=== PATIENT | male | born 1960 | race Caucasian/White ===

== ENCOUNTER 2020-10-06 06:47 | Day surgery (SDC) | payer BC, OTHER ==
[2020-10-04 15:24] VITALS: BMI 46.3
[~2020-10-06 06:47] MED LIST: LACTATED RINGERS 1,000 ML IV SCH; LIDOCAINE 1% (10MG/ML) FOR IV START INTRADERMA PRN
[2020-10-06 07:17] VITALS: TEMP 97.8
[2020-10-06 07:49] LABS: Glucose,Whole Blood 90 mg/dL (75-99)
[2020-10-06] MEDS ORDERED: PROPOFOL 10 MG/ML 20 ML VIAL IV ONE (07:53)
[2020-10-06] MEDS ORDERED: MIDAZOLAM 2 MG/2 ML VIAL ONE (07:53)
--- NOTE | 2020-10-06 08:17 | P.PCN ---
Date of Procedure: 10/06/20 Procedure(s) Performed: BRIEF HISTORY: Patient is a 60-year-old pleasant white male scheduled for an elective colonoscopy as a part of prior history of colon polyps. Last colonoscopy was 5 years ago. PROCEDURE PERFORMED: Colonoscopy with snare polypectomy. PREOPERATIVE DIAGNOSIS: History of colon polyps. IV sedation per Anesthesia. PROCEDURE: After informed consent was obtained, the patient, was brought into the endoscopy unit. IV sedation was administered by Anesthesia under continuous monitoring. Digital rectal examination was normal. Initially the Olympus CF-160 flexible video colonoscope was then inserted in the rectum, gradually advanced into the cecum without any difficulty. Careful examination was performed as the scope was gradually being withdrawn. Ileocecal valve and the appendiceal orifice were visualized and appeared normal. Prep was excellent. Mucosa of the cecum, ascending colon, appeared normal. In the hepatic flexure there was a 5 mm sessile polyp removed by snare polypectomy. In the descending colon there were 3 polyps measuring 3 mm, 7 mm and 1 cm in size all of which were removed by snare polypectomy. In the sigmoid colon there was a 5 mm sessile polyp removed by snare polypectomy. The rest of the sigmoid colon, and rectum appeared normal. Retroflexion was performed in the rectum and no lesions were seen. The patient tolerated the procedure well. IMPRESSION: 5 mm hepatic flexure polyp Status post polypectomy 3 mm and 7 mm and 1 cm descending colon polyp status post 5 mm and 6 mm sigmoid: Polyp status post polypectomy RECOMMENDATIONS: Findings of this examination were discussed with the patient and his family. He was advised to follow with the biopsy results and have a repeat colonoscopy in 3 years
[2020-10-06 08:29] VITALS: RESP 16
[2020-10-06 08:43] VITALS: BP 120/75; PULSE 76
== END 2020-10-06 08:50 | disposition home or self-care (01) ==
LOC: ORWHC2ENDO 06:47
PROVIDERS: ATTEND Internal Medicine Gastroenterology
DX: Z12.11 Encounter for screening for malignant neoplasm of colon (principal); D12.3 Benign neoplasm of transverse colon; D12.4 Benign neoplasm of descending colon; K63.5 Polyp of colon; Z86.010 Personal history of colon polyps; E11.9 Type 2 diabetes mellitus without complications; I10 Essential (primary) hypertension; Z79.899 Other long term (current) drug therapy; Z79.4 Long term (current) use of insulin
CPT/HCPCS: 88305; 45385; J2250; J2704

== ENCOUNTER → 2024-02-25 | Outpatient (CLI) | payer OTHER ==
[2024-02-25 11:01] VITALS: BP 150/87; PULSE 72; RESP 18; TEMP 97.8
--- NOTE | 2024-02-25 11:23 | P.SLEEP ---
History of Present Illness DATE: 02/25/2024 CONSULTATION/NEW PATIENT EVALUATION HISTORY OF PRESENT ILLNESS/SLEEP-WAKE EVALUATION: 64-year-old gentleman had b een evaluated in the sleep center for possible obstructive sleep apnea hypopnea syndrome. Patient has history of obstructive sleep apnea diagnosed about 8 years ago he was started atrial treatment with CPAP, but was not able to use CPAP equipment because was not comfortable with the mask and pressure and did not use any equipment for last 5 years. SLEEP SCHEDULE: Usually sleep schedule from 11 PM to 6 AM. FALLING ASLEEP: Usually no significant problems with falling asleep. DURING SLEEP: Patient has loud snoring and wakes up from sleep every hour with up to 6 episodes of nocturia. No history of hypnogogical hallucinations, sleep paralysis, or cataplexy. DURING THE DAY/WAKE STATE: In the morning patient wake up tired, falling asleep during the day. [place] sleepiness scale is an extremely high range of 21. Patient takes up to 4 naps during the day. PAST MEDICAL HISTORY: CIDP, diabetes mellitus, acid reflux, depression. PAST SURGICAL HISTORY: Port insertion. MEDICATIONS: Please see below. Additionally Privigen IV every 2 weeks, lidocaine for the port usage. SOCIAL HISTORY: Please see below. FAMILY HISTORY: Hypertension, heart problems, epilepsy, stroke, sleep apnea. REVIEW OF SYSTEMS: Loud snoring, multiple awakenings from sleep, nocturia, significant excessive daytime sleepiness. No fevers. No double vision. No recent chest pain. No shortness of breath. No abdominal pain. No bleeding episodes. No blood in urine. No seizure episodes. PHYSICAL EXAMINATION: GENERAL: A pleasant patient without any distress. VITAL SIGNS: Please see below, weight 361.4 pounds, BMI 51.4. HEENT: PERRLA, EOMI. Evaluation of oropharynx showed tongue protrudes midline, low position of soft palate Mallampati 4. NECK: Supple. No JVD. Thyroid is not palpable. 21 inches in circumference. LUNGS: Clear to percussion and to auscultation. Good air exchange. No wheezing or rhonchi. HEART: S1, S2 regular. No murmurs, gallops or rubs. ABDOMEN: Soft and nontender. Bowel sounds are present. No organomegaly appreciated. Obese EXTREMITIES: No clubbing or cyanosis. SOFTWARE ENGINEER SALES: Awake, alert, and oriented x3. ASSESSMENT: 1. Loud snoring, multiple awakenings from sleep, extremely low position of soft palate Mallampati 4, wide neck 21 inches in circumference, sleepiness, history of severe obstructive sleep apnea in the past. Obstructive sleep apnea hypopnea syndrome 2 sleepiness with [place] Sleepiness Scale 21 dictate necessity to include hypersomnia and differential diagnosis.. 2. Morbid obesity BMI 51.7. 3. History of chronic inflammatory demyelinating polyneuropathy (CIDP). 4. Diabetes mellitus. 5 acid reflux. 6 . History of depression. 7. Port in the chest. PLAN: 1. Polysomnography for evaluation of patient's breathing during sleep. 2. CPAP/BiPAP titration if sleep study confirms obstructive sleep apnea- hypopnea syndrome. 3. Preferable position during sleep on the side. 4. No driving if patient feels any sleepiness. Patient is aware of civil and c riminal liability for unsafe driving. 5. Sleep hygiene with regular sleep time for at least 7.5-8 hours. 6. Watching and losing weight. Thank you very much for referring this patient for consultation. Sincerely, Tirso Cleaning MD, PhD, FAASM. Diplomat of [place] [employer], Sleep Medicine Board by [employer] Electrical Line Splicer of [facility] [place] Past Medical History Past Medical History: Diabetes Mellitus, GERD/Reflux, Hypertension, Neurologic Disorder, Prostate Disorder, Sleep Apnea/CPAP/BIPAP Additional Past Medical History / Comment(s): CIDP-CHROIC INFLAMMMATORY DEMYELINATING POLYNEUROPATHY, DEPRESSION History of Any Multi-Drug Resistant Organisms: None Reported Past Surgical History: Adenoidectomy, Orthopedic Surgery, Tonsillectomy Additional Past Surgical History / Comment(s): ORIF RT ANKLE. COLONOSCOPY X 2. FRENULECTOMY ADULT Past Anesthesia/Blood Transfusion Reactions: No Reported Reaction Past Psychological History: Depression Smoking Status: Former smoker Past Alcohol Use History: Rare Additional Past Alcohol Use History / Comment(s): QUIT SMOKING 20-30 YEARS AGO Past Drug Use History: None Reported - Past Family History Father Family Medical History: Cancer Additional Family Medical History / Comment(s): FATHER VENTRICULAR FIBRILLATION Brother(s) Family Medical History: Pulmonary Embolus Medications and Allergies Home Medications Medication Instructions Recorded Confirmed Type Eufemiawell Chews 5 gram PO DAILY 10/04/20 History Glimepiride [Amaryl] 4 mg PO BID 10/04/20 10/04/20 History Insulin Glargine [Lantus] 96 unit SQ HS 10/04/20 10/04/20 History Iv Ig 90 gram IV Q21D 10/04/20 History Metoprolol Succinate (ER) [Toprol 25 mg PO DAILY 10/04/20 10/04/20 History Xl] Multivitamins, Thera [Multivitamin 1 tab PO DAILY 10/04/20 10/04/20 History (formulary)] Tamsulosin [Flomax] 0.4 mg PO HS 10/04/20 10/04/20 History metFORMIN HCL [Glucophage] 1,000 mg PO BID 10/04/20 10/04/20 History mycophenolate mofetiL [Cellcept] 1,000 mg PO BID 10/04/20 10/04/20 History Allergies Allergy/AdvReac Type Severity Reaction Status Date / Time No Known Allergies Allergy Verified 10/06/20 07:14 Physical Exam Vitals: Vital Signs Temp Pulse Resp BP Pulse Ox 02/25/24 10:40 97.8 F 72 18 150/87 94 L Intake and Output 02/24/24 02/25/24 02/25/24 22:59 06:59 14:59 Other: Weight 163.86 kg Sleep Note - Sleep Data ESS Total: 21 - Sleep Note Sleep Note: Temperature: 97.8 F Pulse Rate: 72 Respiratory Rate: 18 Blood Pressure: 150/87 SpO2: 94 Height: 5 ft 10 in Weight: 163.86 kg BMI: Neck Circumference:
== END ==
LOC: 3 N SLEEP 10:07
PROVIDERS: ATTEND Internal Medicine
DX: G47.33 Obstructive sleep apnea (adult) (pediatric) (principal); G47.10 Hypersomnia, unspecified; E66.01 Morbid (severe) obesity due to excess calories; K21.9 Gastro-esophageal reflux disease without esophagitis; G61.81 Chronic inflammatory demyelinating polyneuritis; E11.42 Type 2 diabetes mellitus with diabetic polyneuropathy; Z86.69 Personal history of other diseases of the nervous system and sense organs; Z79.4 Long term (current) use of insulin; Z79.84 Long term (current) use of oral hypoglycemic drugs; Z86.59 Personal history of other mental and behavioral disorders; Z68.43 Body mass index [BMI] 50.0-59.9, adult; Z95.9 Presence of cardiac and vascular implant and graft, unspecified; Z87.891 Personal history of nicotine dependence
CPT/HCPCS: 99202

== ENCOUNTER 2024-04-04 20:38 | Outpatient (CLI) | payer OTHER ==
--- NOTE | 2024-04-07 15:13 | P.PCN ---
Description of Procedure: POLYSOMNOGRAPHY REPORT PROCEDURE(S)/DATE(S): Polysomnography 04/04/2024 CLINICAL: Patient has been seen in the sleep center for evaluation of obstructive sleep apnea-hypopnea syndrome. Please see my consultation. Sleep study has been done for evaluation of patient breathing during the sleep. PROCEDURE: The standard montage for clinical polysomnography included the electroencephalogram, the electrooculogram, the mentalis surface electromyography and Lead II cardiography. The respiratory battery consisted of measurements of nasal/buccal air flow, pressure transducer measurements from nose, thoracic and/or abdominal effort and intercostal surface electromyography. Video monitoring has been done to check for any parasomnia events. Nocturnal oxyhemoglobin saturations were obtained by finger oximetry. Step-see titration with positive airway pressure was utilized to control the respiratory events, if necessary. RESULTS: During the diagnostic sleep study sleep efficiency was extremely short 59.3%. Latency to sleep onset was normal 9.5 min. Sleep architecture showed st age NI was extremely high 95.2%, Delta sleep was absent 0%, REM sleep was absent 0%. Respiratory channel showed 0 obstructive apneas, 0 mixed apneas, 0 central apneas, 558 hypopneas with lowest oxygen level 64%. Total apnea hypopnea index was 133.4. Heart rate was in the range between 66 and 81, average 73 by computer calculation. EMG showed 0 periodic limb movements per hour with 0 micro-arousals per hour. IMPRESSIONS: 1. Extremely severe obstructive sleep apnea hypopnea syndrome with apnea hypopnea index 133.4 and oxygen desaturation to 64%. 2. No significant periodic limb movements have been documented. Please see other impressions from consultation PLAN: 1. The patient will have PAP titration for correction of respiratory abnormalities during the sleep. 2. Losing weight program. 3. Sleep hygiene with regular time in bed for at least 7-1/2 hours. 4. No driving if feeling sleepiness. Thank you very much for allowing me to participate in the management of your patient. Sincerely, Tirso Cleaning MD, PhD, FAASM. Diplomat of [place] [employer] Medicine, Sleep Medicine Board by [place] Board of Internal Medicine Treatment Specialist of [facility] [place]
== END 2024-04-05 05:50 | disposition home or self-care (01) ==
LOC: 3 N SLEEP 20:38
PROVIDERS: ATTEND Internal Medicine
DX: G47.33 Obstructive sleep apnea (adult) (pediatric) (principal); G47.36 Sleep related hypoventilation in conditions classified elsewhere
CPT/HCPCS: 95810

== ENCOUNTER 2024-04-06 18:55 | Outpatient (CLI) | payer OTHER ==
--- NOTE | 2024-04-08 12:40 | P.PCN ---
Description of Procedure: CLINICAL: Titration with positive air pressure has been done for correction of respiratory abnormalities during sleep. DESCRIPTION OF PROCEDURE: The standard montage for clinical polysomnography included the electroencephalogram, the electrocardiogram, the mentalis surface electromyography and Lead II cardiography. The respiratory battery consisted of measurements of nasal /buccal air flow, pressure transducer measurements from the nose, thoracic and /or abdominal effort and intercostal surface electromyography. Video monitoring has been done to check for any parasomnia events. Nocturnal oxyhemoglobin saturations were obtained by finger oximetry. Step-see titration with positive airway pressure was utilized to control respiratory events. Raw data of sleep recording has been reviewed and is adequate. RESULTS: Sleep efficiency was increased to 93.7%. Latency to sleep onset was short 6.5 minutes.]. Sleep architecture showed stage N1 was normal 8.4%, Delta sleep was decreased to 3.8%, REM sleep was low 6.9%. Heart rate was minimum 65 BPM, maximum 74 BPM, average 69 BPM. EMG showed 17.2 periodic limb movements per hour with 0.5 micriarousals per hour. PAP titration have been done with CPAP up to the pressure 17 cm H2O. Patient continued to have respiratory problems with CPAP, switched to BPAP. BPAP titrated up to 25/21 cm H2O. The best results were at the pressure BiPAP 25/21 with 3 L/min oxygen supplement cm H2O. Apnea hypopnea index reduced to 21.2. IMPRESSION: 1. Extremely severe obstructive sleep apnea hypopnea syndrome with apnea hypopnea index 133.4 with oxygen desaturation to 64% improved on maximal BiPAP pressure 25/21 centimeters of water with 3 L/min oxygen supplement. 2. Mild periodic limb movements have been documented during titration without significant amount of related microarousal's. Please see other impressions from consultation. PLAN: 1. The patient will have treatment with positive air pressure equipment with the level of pressure AutoBPAP with maximal inspiratory pressure 25 and minimal expiratory pressure 10 with pressure support 4 cm H2O with 3 L/min oxygen supplement and should use it every night for the whole night. 2. Watching and losing weight. 3. Sleep hygiene with regular time in bed for at least 8 hours. 4. No driving if feeling any sleepiness. 5. I will see the patient for follow up visit to explain the results of the test, recommendations, check compliance with treatment and make any necessary adjustment related to mask fitting, pressure and humidification. 6. Please check iron profile including ferritin level. Low level of iron may increase risk for periodic limb movements Thank you very much for allowing me to participate in the management of your patient. Sincerely, Tirso Cleaning MD, PhD, FAASM Diplomat of [place] [employer]ties Sleep Medicine Board of [place] [employer] of Internal Medicine Hotel Front Office Manager of [facility] [place]
== END 2024-04-07 05:30 | disposition home or self-care (01) ==
LOC: 3 N SLEEP 18:55
PROVIDERS: ATTEND Internal Medicine
DX: G47.33 Obstructive sleep apnea (adult) (pediatric) (principal); G47.61 Periodic limb movement disorder; G47.36 Sleep related hypoventilation in conditions classified elsewhere
CPT/HCPCS: 95811

== ENCOUNTER → 2024-07-13 | Day surgery (SDC) | payer OTHER ==
[2024-07-08 10:32] VITALS: BMI 50.5
[~2024-07-13] MED LIST changes: +LIDOCAINE 1% INJ 10MG/ML (20 ML MDV) ONE; +PROPOFOL 10 MG/ML 20 ML VIAL IV ONE
[2024-07-13] MEDS: IV FLUID CONTINUATION 1,000 ML IV ONE (08:38)
[2024-07-13 08:58] LABS: Glucose,Whole Blood 119 mg/dL (70-110)
--- NOTE | 2024-07-13 09:58 | P.PCN ---
Date of Procedure: 07/13/24 Procedure(s) Performed: BRIEF HISTORY: Patient is a 64-year-old pleasant white male scheduled for an elective colonoscopy as a part of evaluation for history colon polyps.. Last colonoscopy was 4 years ago and was noted to have a tubular adenoma. PROCEDURE PERFORMED: Colonoscopy with snare polypectomy. PREOPERATIVE DIAGNOSIS: History of colon polyps. IV sedation per Anesthesia. PROCEDURE: After informed consent was obtained, the patient, was brought into the endoscopy unit. IV sedation was administered by Anesthesia under continuous monitoring. Digital rectal examination was normal. Initially the Olympus CF-160 flexible video colonoscope was then inserted in the rectum, gradually advanced i nto the cecum without any difficulty. Careful examination was performed as the scope was gradually being withdrawn. Ileocecal valve and the appendiceal orifice were visualized and appeared normal. Prep was excellent. Mucosa of the cecum, appeared normal. Descending colon there was a 5 mm polyp that was removed by cold snare polypectomy. In the descending colon there was an 8 mm polyp removed by cold snare polypectomy. In the sigmoid colon there was a 3 mm and 5 mm polyp removed by cold snare polypectomy. Rest of the ascending colon, transverse colon, descending colon, sigmoid colon, and rectum appeared normal. Retroflexion was performed in the rectum and no lesions were seen. The patient tolerated the procedure well. IMPRESSION: 5 mm ascending colon polyp status post cold snare polypectomy 8 mm descending colon polyp status post cold snare polypectomy 3 mm and 5 mm sigmoid colon polyps status post cold snare polypectomy RECOMMENDATIONS: Findings of this examination were discussed with the patient as well as his family. He was advised to follow-up with the biopsy results. If the biopsy reveals adenoma he can have repeat colonoscopy in 5 years.
[2024-07-13 11:04] VITALS: BP 123/71; PULSE 78; RESP 16
== END ==
LOC: ORWHC2ENDO 07:45
PROVIDERS: ATTEND Internal Medicine Gastroenterology
DX: Z12.11 Encounter for screening for malignant neoplasm of colon (principal); D12.2 Benign neoplasm of ascending colon; D12.5 Benign neoplasm of sigmoid colon; Z86.010 Personal history of colon polyps
CPT/HCPCS: 45385; 88305

== ENCOUNTER → 2024-07-22 | Outpatient (CLI) | payer OTHER ==
[2024-07-22 10:45] VITALS: BP 160/81; PULSE 76; RESP 16; TEMP 97.6
--- NOTE | 2024-07-22 11:37 | P.PROGSL ---
Subjective DATE: 07/22/2024 FOLLOW UP VISIT. Patient with obstructive sleep apnea hypopnea syndrome return to sleep center for follow-up visit. Recently patient had sleep study which documented obstructive sleep apnea hypopnea syndrome. Patient was initiated on PAP therapy and today is first visit after treatment was started. I explained results of sleep studies to the patient in details. He has extremely severe sleep apnea. Patient was able to use BPAP equipment every night for the whole night. At the beginning he had some problems with the mask, mask was changed and now he is doing better. The patient does not have significant problems with the mask, PAP pressure and humidification. Patient feels better during the day. [place] sleepiness scale is improved but still in very high range of 18. I checked information from BPAP unit. BPAP unit average pressure 13.8 / 9.8 cm H2O. Usage is 90% and about 60% for more then 4 hours, average 4.1 hours per night. Leak is 22 l/m, which is in acceptable range. Apnea Hypopnea Index is 2.3, which is normal. MEDICATIONS: Please see below During physical exam: GENERAL: A pleasant patient without any distress. VITAL SIGNS: Please see below. Weight is 369 pounds. HEENT: PERRLA, EOMI.low position of soft palate, Mallapati 4 . NECK: Supple. No JVD. LUNGS: Clear to percussion and to auscultation. Good air exchange. No wheezing or rhonchi. HEART: S1, S2 regular. ABDOMEN: Soft and nontender. Obese EXTREMITIES: No clubbing or cyanosis. STOVE BOTTOM WORKER: Awake, alert, and oriented x3. No focal deficit. Impressions: 1. Obstructive sleep apnea-hypopnea syndrome and extremely severe range, apnea hypopnea index 133.4 with oxygen desaturation to 64%. Respiration normalized on treatment with BiPAP. Patient demonstrated borderline compliance with treatment, benefiting from treatment. Some nights patient used equipment less than 4 hours. 2. Morbid obesity. 3. Diabetes mellitus. 4. Acid reflux. 5. History of depression. 6. History of chronic inflammatory demyelinating polyneuropathy. Agree this is Dr. Cleaning from sleep clinic I just saw you please give me a call I have a question thank you Plan: 1. Continue using PAP equipment every night for the whole night. Patient should start oxygen supplement during the sleep, as it was recommended after the sleep study 3 L/min with BiPAP. 2. To change air filter at least 1-2 times per month. 3. PAP unit should stay lower then position of the head. 4. Advised patient to remove all remaining water from humidifier canister daily and make it dry after each usage. Refill canister with fresh distilled water before each usage. 5. Sleep hygiene with regular time in bed for at least 8 hours. 6. Precautions related to driving. No driving if feel any sleepiness. 7. I will maintain prescription for PAP supplies including mask, tube, filters. 8. Follow up visit in 3 months or earlier if patient has any problems. 9. Watching and aggressive losing weight. 10. Extend trial period for another 90 days. Thank you very much for allowing me to participate in the management of your patient. Tirso Cleaning MD, PhD, FAASM. Diplomat of [place] [employer] Sleep Medicine, Sleep Medicine Board by [place] [employer] Internal Medicine Oven Technician of [facility] [place] cc: Kiel Curtis MD Objective - Vital Signs Vital Signs: Vital Signs Temp 97.6 F 07/22/24 10:44 Pulse 76 07/22/24 10:44 Resp 16 07/22/24 10:44 BP 160/81 07/22/24 10:44 Pulse Ox 95 07/22/24 10:44 FiO2 Intake & Output 07/21/24 07/22/24 07/22/24 18:59 06:59 18:59 Weight 167.376 kg Home Medications: Home Medications Medication Instructions Recorded Confirmed Type Insulin Glargine [Lantus] 55 unit SQ BID 10/04/20 07/08/24 History Metoprolol Succinate (ER) [Toprol 25 mg PO QAM 10/04/20 07/08/24 History Xl] Multivitamins, Thera [Multivitamin 1 tab PO DAILY 10/04/20 07/08/24 History (formulary)] metFORMIN HCL [Glucophage] 1,000 mg PO BID 10/04/20 07/08/24 History Cholecalciferol (Vitamin D3) 250 mcg PO DAILY 07/08/24 07/08/24 History [Vitamin D3 (125 MCG = 5,000 IU)] Famotidine 20 mg PO BID 07/08/24 07/08/24 History INSULIN ASPART (NovoLOG) [NovoLOG 0 unit SQ ACHS PRN 07/08/24 07/08/24 History (formulary)] INSULIN ASPART (NovoLOG) [NovoLOG 34 unit SQ AC-BRKFST 07/08/24 07/08/24 History (formulary)] INSULIN ASPART (NovoLOG) [NovoLOG 34 units SQ AC-LUNCH 07/08/24 07/08/24 History (formulary)] INSULIN ASPART (NovoLOG) [NovoLOG 42 unit SQ AC-SUPPER 07/08/24 07/08/24 History (formulary)] Losartan Potassium [Cozaar] 100 mg PO QAM 07/08/24 07/08/24 History Magnesium 300 mg PO DAILY 07/08/24 07/08/24 History Privigen Iv 10 gm IV Q14D 07/08/24 07/13/24 History Sertraline HCl [Zoloft] 50 mg PO HS 07/08/24 07/08/24 History Tirzepatide [Mounjaro] 7.5 mg SQ WE 07/08/24 07/08/24 History
== END ==
LOC: 3 N SLEEP 10:34
PROVIDERS: ATTEND Internal Medicine
CPT/HCPCS: 99212

== ENCOUNTER → 2024-10-21 | Outpatient (CLI) | payer OTHER ==
[2024-10-21 13:25] VITALS: BP 180/76; PULSE 75; RESP 16; TEMP 98
--- NOTE | 2024-10-21 14:26 | P.PROGSL ---
Subjective DATE: 10/21/2024 FOLLOW UP VISIT. Patient with obstructive sleep apnea hypopnea syndrome return to sleep center for follow-up visit. Information from previous visit have been reviewed. Patient is using PAP equipment every night for the whole night, getting PAP supplies in time. The patient does not have significant problems with the mask, PAP unit and humidification. [place] sleepiness scale is slightly increased to 11. I checked information from PAP unit. PAP unit pressure 13.8/9.8 cm H2O. Usage is 100% for more then 4 hours, average 5.25 hours per night. Leak is 16.8 l/m, which is in acceptable range. Apnea Hypopnea Index is 3, which is normal. MEDICATIONS have been reviewed, please see below. During physical exam: GENERAL: A pleasant patient without any distress. VITAL SIGNS: Please see below, weight is 360 lbs. HEENT: PERRLA, EOMI.low position of soft palate, Mallapati 4 . NECK: Supple. No JVD. LUNGS: Clear to percussion and to auscultation. Good air exchange. No wheezing or rhonchi. HEART: S1, S2 regular. ABDOMEN: Soft and nontender. Obese EXTREMITIES: No clubbing or cyanosis. BITUMINOUS PAVING MACHINE OPERATOR: Awake, alert, and oriented x3. No focal deficit. Impressions: 1. Extremely severe obstructive sleep apnea-hypopnea syndrome, original apnea- hypopnea index 133.4 with oxygen desaturated to 64%. Patient demonstrated great compliance with treatment, benefiting from treatment. 2. Obesity, BMI 51.6, patient lost 9 pounds comparing with the previous visit. 3. Diabetes mellitus. 4. Acid reflux. 5. History of depression. 6. History of chronic inflammatory demyelinating polyneuropathy. Plan: 1. Continue using PAP equipment every night for the whole night. 2. Sleep hygiene with regular time in bed for at least 7.5-8 hours 3. PAP unit should stay lower then position of the head. 4. Advised patient to remove all remaining water from humidifier canister daily and make it dry after each usage. Refill canister with fresh distilled water before each usage. 5. Watching and losing weight. 6. Precautions related to driving. No driving if feel any sleepiness. 7. I will maintain prescription for PAP supplies including mask, tube, filters. 8. Follow up visit in 8 months or earlier if patient has any problems. Thank you very much for allowing me to participate in the management of your patient. Tirso Cleaning MD, PhD, FAASM. Diplomat of [place] [employer] Sleep Medicine, Sleep Medicine Board by [employer] Board of Internal Medicine Case Manager of [facility] [place] Objective - Vital Signs Vital Signs: Vital Signs Temp 98 F 10/21/24 13:24 Pulse 75 10/21/24 13:24 Resp 16 10/21/24 13:24 BP 180/76 10/21/24 13:24 Pulse Ox 97 10/21/24 13:24 FiO2 Intake & Output 10/20/24 10/21/24 10/21/24 18:59 06:59 18:59 Weight 163.293 kg Home Medications: Home Medications Medication Instructions Recorded Confirmed Type Insulin Glargine [Lantus] 55 unit SQ BID 10/04/20 07/08/24 History Metoprolol Succinate (ER) [Toprol 25 mg PO QAM 10/04/20 07/08/24 History Xl] Multivitamins, Thera [Multivitamin 1 tab PO DAILY 10/04/20 07/08/24 History (formulary)] metFORMIN HCL [Glucophage] 1,000 mg PO BID 10/04/20 07/08/24 History Cholecalciferol (Vitamin D3) 250 mcg PO DAILY 07/08/24 07/08/24 History [Vitamin D3 (125 MCG = 5,000 IU)] Famotidine 20 mg PO BID 07/08/24 07/08/24 History INSULIN ASPART (NovoLOG) [NovoLOG 0 unit SQ ACHS PRN 07/08/24 07/08/24 History (formulary)] INSULIN ASPART (NovoLOG) [NovoLOG 34 unit SQ AC-BRKFST 07/08/24 07/08/24 History (formulary)] INSULIN ASPART (NovoLOG) [NovoLOG 34 units SQ AC-LUNCH 07/08/24 07/08/24 History (formulary)] INSULIN ASPART (NovoLOG) [NovoLOG 42 unit SQ AC-SUPPER 07/08/24 07/08/24 History (formulary)] Losartan Potassium [Cozaar] 100 mg PO QAM 07/08/24 07/08/24 History Magnesium 300 mg PO DAILY 07/08/24 07/08/24 History Privigen Iv 10 gm IV Q14D 07/08/24 07/13/24 History Sertraline HCl [Zoloft] 50 mg PO HS 07/08/24 07/08/24 History Tirzepatide [Mounjaro] 7.5 mg SQ WE 07/08/24 07/08/24 History
== END ==
LOC: 3 N SLEEP 13:14
PROVIDERS: ATTEND Internal Medicine
DX: G47.33 Obstructive sleep apnea (adult) (pediatric) (principal); E66.9 Obesity, unspecified; E11.9 Type 2 diabetes mellitus without complications; K21.9 Gastro-esophageal reflux disease without esophagitis; F32.A Depression, unspecified; Z86.69 Personal history of other diseases of the nervous system and sense organs; Z99.89 Dependence on other enabling machines and devices; Z68.43 Body mass index [BMI] 50.0-59.9, adult; Z88.8 Allergy status to other drugs, medicaments and biological substances; Z79.4 Long term (current) use of insulin; Z79.84 Long term (current) use of oral hypoglycemic drugs
CPT/HCPCS: 99212